=== PATIENT | female | born 1990 | race American Indian/Alaskan Native ===

== ENCOUNTER 2016-07-08 06:58 | Emergency (ER) | payer MEDICAID ==
[2016-07-08] MEDS ORDERED: TYLENOL ONE (07:04)
[2016-07-08] MEDS ORDERED: TYLENOL PO ONE (07:10)
[2016-07-08 07:45] LABS: Basophils % (Auto) 1.2 % (0.0-1.8); Eosinophils % (Auto) 0.8 % (0.0-4.3); Hematocrit 32.7 % (30.3-42.9); Mean Corpuscular HGB Conc 31 % (30-34); Mean Corpuscular Volume 73 fl (79-97); Platelet Count 352 K/mm3 (140-440); Red Blood Count 4.45 M/mm3 (3.65-5.03); Red Cell Distribution Width 19.6 % (13.2-15.2); White Blood Count 5.3 K/mm3 (4.5-11.0)
[2016-07-08 07:48] LABS: Mean Corpuscular Hemoglobin 22 pg (28-32)
[2016-07-08 07:49] LABS: Alanine Aminotransferase 14 units/L (7-56); Albumin 4.6 g/dL (3.9-5); Albumin/Globulin Ratio 1.5 %; Alkaline Phosphatase 59 units/L (35-129); Anion Gap 17 mmol/L; BUN/Creatinine Ratio 18.33; Blood Urea Nitrogen 11 mg/dL (7-17); Calcium 9.5 mg/dL (8.4-10.2); Carbon Dioxide 21 mmol/L (22-30); Chloride 105.3 mmol/L (98-107); Glucose 92 mg/dL (65-100); Lipase 14 units/L (13-60); Potassium 3.9 mmol/L (3.6-5.0); Sodium 139 mmol/L (137-145); Total Protein 7.7 g/dL (6.3-8.2)
[2016-07-08 08:10] LABS: Bilirubin,Urine NEG (Negative); Blood,Urine NEG (Negative); Ketones,Urine 20 mg/dL (Negative); Leukocyte Esterase,Urine NEG (Negative); Mucus,Urine 3+ /HPF; Nitrite,Urine NEG (Negative)
[2016-07-08 09:44] LABS: Bilirubin,Total 0.6 mg/dL (0.1-1.2)
[2016-07-08] MEDS ORDERED: KEPPRA 1,000 MG/NS 0.75% 100ML 1,000 MG/100 ML BAG IV ONE (11:47)
[2016-07-08] MEDS ORDERED: KEPPRA 1,000 MG in NACL 0.9% 100 ML IV SCH (11:55)
[2016-07-08] MEDS ORDERED: LaMICtal PO ONE (13:48)
[2016-07-08] MEDS ORDERED: TORADOL IV ONE (13:48)
[2016-07-08] MEDS ORDERED: NACL 0.9% 1000 ML 1,000 ML IV ONE (13:48)
[2016-07-08] MEDS ORDERED: ZOFRAN IV ONE (13:49)
--- NOTE | 2016-07-08 13:49 | Emergency Department Report ---
ED General Adult HPI - General Chief complaint: Abdominal Pain Stated complaint: STOMACH/BACK PAIN,VOMITING Time Seen by Provider: 07/08/16 13:00 Source: patient, RN notes reviewed Mode of arrival: Ambulatory Limitations: No Limitations - History of Present Illness Initial comments: This is a 26-year-old female. She is previously unknown to me. Has a past medical history of asthma, bipolar, schizophrenia, seizure disorder. Patient takes Keppra, 500 mg twice daily, and Lamictal, 500 mg, once daily. The patient presents to the ER with 2 complaints. Her first complaint is abdominal pain. It is in the right lower quadrant and left lower quadrant. It is achy. It is associated with nausea and vomiting. No irritative or obstructive urinary symptoms. No vaginal discharge. No vaginal pain. The pain does not radiate anywhere. The patient's next complaint is seizure/convulsion. Apparently, the patient was in the ER, and had a seizure. She did not hit her head. The patient reports not taking her anticonvulsant medication this morning. She reports that she is sexually active with a male partner, and does not use condoms. -: Gradual Location: abdomen, pelvis Severity scale (0 -10): 0 Quality: aching Consistency: intermittent Improves with: none Worsens with: none Associated Symptoms: nausea/vomiting. denies: chest pain, cough, diaphoresis, fever/chills - Related Data Previous Rx's Medication Instructions Recorded Last Taken Type Ketorolac [Toradol] 10 mg PO Q6H PRN #20 tablet 07/08/16 Unknown Rx Ondansetron [Zofran Odt] 4 mg PO QID PRN #20 tab.rapdis 07/08/16 Unknown Rx lamoTRIgine [LaMICtal Xr] 500 mg PO QDAY #30 tab.er.24 07/08/16 Unknown Rx levETIRAcetam [Keppra TAB] 500 mg PO BID #60 tablet 07/08/16 Unknown Rx Allergies Allergy/AdvReac Type Severity Reaction Status Date / Time No Known Allergies Allergy Unverified 12/09/15 17:49 ED Review of Systems ROS: Stated complaint: STOMACH/BACK PAIN,VOMITING Other details as noted in HPI Constitutional: denies: fever, malaise Eyes: denies: vision change ENT: denies: epistaxis Respiratory: denies: cough Cardiovascular: denies: chest pain Gastrointestinal: abdominal pain, nausea, vomiting Genitourinary: denies: urgency, dysuria Musculoskeletal: denies: back pain Skin: as per HPI. denies: lesions Neurological: other (seizure) Psychiatric: as per HPI ED Past Medical Hx - Past Medical History Previous Medical History?: Yes Hx Seizures: Yes Hx Psychiatric Treatment: Yes (BIPOLAR, SCHIZOPHRENIC) Hx Asthma: Yes - Surgical History Past Surgical History?: Yes Additional Surgical History: C SECTION X3 - Social History Smoking Status: Current Every Day Smoker Substance Use Type: Alcohol - Medications Home Medications: Home Medications Medication Instructions Recorded Confirmed Last Taken Type Ketorolac [Toradol] 10 mg PO Q6H PRN #20 tablet 07/08/16 Unknown Rx Ondansetron [Zofran Odt] 4 mg PO QID PRN #20 tab.rapdis 07/08/16 Unknown Rx lamoTRIgine [LaMICtal Xr] 500 mg PO QDAY #30 tab.er.24 07/08/16 Unknown Rx levETIRAcetam [Keppra TAB] 500 mg PO BID #60 tablet 07/08/16 Unknown Rx ED Physical Exam - General Limitations: No Limitations General appearance: alert, in no apparent distress - Head Head exam: Present: atraumatic, normocephalic - Eye Eye exam: Present: normal appearance, EOMI. Absent: nystagmus - ENT ENT exam: Present: normal exam, normal orophraynx, mucous membranes moist, normal external ear exam - Neck Neck exam: Present: normal inspection, full ROM. Absent: tenderness, meningismus - Respiratory Respiratory exam: Present: normal lung sounds bilaterally. Absent: respiratory distress, wheezes, rales, rhonchi, stridor, decreased breath sounds - Cardiovascular Cardiovascular Exam: Present: regular rate, normal rhythm, normal heart sounds. Absent: bradycardia, tachycardia, irregular rhythm, systolic murmur, diastolic murmur, rubs, gallop - GI/Abdominal GI/Abdominal exam: Present: soft, tenderness, normal bowel sounds. Absent: distended, guarding, rebound, rigid, pulsatile mass - External exam: Present: normal external exam Speculum exam: Present: normal speculum exam Bi-manual exam: Present: normal bi-manual exam, other (escorted by KOLTON Whiting). Absent: cervical motion tendernes, adnexal tenderness, adnexal mass - Extremities Exam Extremities exam: Present: normal inspection, full ROM, normal capillary refill. Absent: tenderness, pedal edema, joint swelling, calf tenderness - Back Exam Back exam: Present: normal inspection, full ROM. Absent: tenderness, CVA tenderness (R), CVA tenderness (L), muscle spasm, paraspinal tenderness, vertebral tenderness - Neurological Exam Neurological exam: Present: alert, oriented X3, normal gait, other (Extraocular movements intact. Tongue midline. No facial droop. Facial sensation intact to light touch in the V1, V2, V3 distribution bilaterally. 5 and 5 strength in 4 extremities.. Sensation is intact to light touch in 4 extremities.). Absent : motor sensory deficit - Psychiatric Psychiatric exam: Present: normal affect, normal mood - Skin Skin exam: Present: warm, dry, intact, normal color. Absent: rash ED Course Vital Signs 07/08/16 07/08/16 07/08/16 07:10 12:16 12:17 Temperature 98.6 F 98.9 F Pulse Rate 65 98 H Respiratory 18 16 16 Rate Blood Pressure 110/76 102/52 [Right] O2 Sat by Pulse 100 100 100 Oximetry - Reevaluation(s) Reevaluation #1: 07/08/16 15:24 Appendicitis, colitis, gastroenteritis, urinary tract infection, pelvic inflammatory disease, seizure, pseudoseizure, medication noncompliance Assessment and plan: 26-year-old female with 2 complaints. In terms of the patient's abdominal pain, her gynecologic exam is not consistent with pelvic inflammatory disease, she felt improved after symptomatic therapy, and a CT scan of the abdomen and pelvis with IV contrast did not show an acute surgical disease. The patient does admits to consuming cannabis, this is recreational, she is not clinically intoxicated at this time, she has a GCS of 15, with an NIH score of 0. Patient was counseled to discontinue cannabis consumption. In terms of her abdominal pain, it appears that she is suitable to follow up with an outpatient primary care doctor. In terms of the patient's seizure, I did not personally witness it, she was loaded with Keppra prior to my evaluation. Patient is instructed that she should not drive a car for the next 6 months, I will refill her antiepileptic drug medication lists, and she is instructed to follow-up with an outpatient neurologist or primary care physician. She was observed in the ER for a prolonged period of time without significant clinical decompensation. She will be discharged at this time, and return precautions were extensively reviewed. - EJ/Peripheral Line Neck L Time Out Performed: Yes Indications: nurses unable to establis Skin Cleansed in Sterile Fashion: Yes Size: 20 Dressing Placed: Tegaderm Patient Tolerated Procedure: well ED Medical Decision Making - Lab Data Result diagrams: 07/08/16 07:15 07/08/16 07:15 Vital Signs 07/08/16 07/08/16 07/08/16 07:10 12:16 12:17 Temperature 98.6 F 98.9 F Pulse Rate 65 98 H Respiratory 18 16 16 Rate Blood Pressure 110/76 102/52 [Right] O2 Sat by Pulse 100 100 100 Oximetry Lab Results 07/08/16 07/08/16 07/08/16 Range/Units 07:15 07:15 07:15 WBC 5.3 (4.5-11.0) K/mm3 RBC 4.45 (3.65-5.03) M/mm3 Hgb 10.0 L (10.1-14.3) gm/dl Hct 32.7 (30.3-42.9) % MCV 73 L (79-97) fl MCH 22 L (28-32) pg MCHC 31 (30-34) % RDW 19.6 H (13.2-15.2) % Plt Count 352 (140-440) K/mm3 Lymph % (Auto) 32.2 (13.4-35.0) % [place] % (Auto) 9.4 H (0.0-7.3) % Eos % (Auto) 0.8 (0.0-4.3) % Baso % (Auto) 1.2 (0.0-1.8) % Lymph # 1.7 (1.2-5.4) K/mm3 [place] # 0.5 (0.0-0.8) K/mm3 Eos # 0.0 (0.0-0.4) K/mm3 Baso # 0.1 (0.0-0.1) K/mm3 Seg Neutrophils % 56.4 (40.0-70.0) % Seg Neutrophils # 3.0 (1.8-7.7) K/mm3 Sodium 139 (137-145) mmol/L Potassium 3.9 (3.6-5.0) mmol/L Chloride 105.3 (98-107) mmol/L Carbon Dioxide 21 L (22-30) mmol/L Anion Gap 17 mmol/L BUN 11 (7-17) mg/dL Creatinine 0.6 L (0.7-1.2) mg/dL Estimated GFR > 60 ml/min BUN/Creatinine Ratio 18.33 % Glucose 92 (65-100) mg/dL Calcium 9.5 (8.4-10.2) mg/dL Total Bilirubin 0.6 (0.1-1.2) mg/dL AST 17 (5-40) units/L ALT 14 (7-56) units/L Alkaline Phosphatase 59 (35-129) units/L Total Protein 7.7 (6.3-8.2) g/dL Albumin 4.6 (3.9-5) g/dL Albumin/Globulin Ratio 1.5 % Lipase 14 (13-60) units/L HCG, Qual Negative (Negative) Urine Color (Yellow) Urine Turbidity (Clear) Urine pH (5.0-7.0) Ur Specific [place] (1.003-1.030) Urine Protein (Negative) mg/dL Urine Glucose (UA) (Negative) mg/dL Urine Ketones (Negative) mg/dL Urine Blood (Negative) Urine Nitrite (Negative) Urine Bilirubin (Negative) Urine Urobilinogen (<2.0) mg/dL Ur Leukocyte Esterase (Negative) Urine WBC (Auto) (0.0-6.0) /HPF Urine RBC (Auto) (0.0-6.0) /HPF U Epithel Cells (Auto) (0-13.0) /HPF Urine Mucus /HPF 07/08/16 Range/Units 07:34 WBC (4.5-11.0) K/mm3 RBC (3.65-5.03) M/mm3 Hgb (10.1-14.3) gm/dl Hct (30.3-42.9) % MCV (79-97) fl MCH (28-32) pg MCHC (30-34) % RDW (13.2-15.2) % Plt Count (140-440) K/mm3 Lymph % (Auto) (13.4-35.0) % [place] % (Auto) (0.0-7.3) % Eos % (Auto) (0.0-4.3) % Baso % (Auto) (0.0-1.8) % Lymph # (1.2-5.4) K/mm3 [place] # (0.0-0.8) K/mm3 Eos # (0.0-0.4) K/mm3 Baso # (0.0-0.1) K/mm3 Seg Neutrophils % (40.0-70.0) % Seg Neutrophils # (1.8-7.7) K/mm3 Sodium (137-145) mmol/L Potassium (3.6-5.0) mmol/L Chloride (98-107) mmol/L Carbon Dioxide (22-30) mmol/L Anion Gap mmol/L BUN (7-17) mg/dL Creatinine (0.7-1.2) mg/dL Estimated GFR ml/min BUN/Creatinine Ratio % Glucose (65-100) mg/dL Calcium (8.4-10.2) mg/dL Total Bilirubin (0.1-1.2) mg/dL AST (5-40) units/L ALT (7-56) units/L Alkaline Phosphatase (35-129) units/L Total Protein (6.3-8.2) g/dL Albumin (3.9-5) g/dL Albumin/Globulin Ratio % Lipase (13-60) units/L HCG, Qual (Negative) Urine Color Yellow (Yellow) Urine Turbidity Clear (Clear) Urine pH 5.0 (5.0-7.0) Ur Specific [place] 1.029 (1.003-1.030) Urine Protein 30 mg/dl (Negative) mg/dL Urine Glucose (UA) Neg (Negative) mg/dL Urine Ketones 20 (Negative) mg/dL Urine Blood Neg (Negative) Urine Nitrite Neg (Negative) Urine Bilirubin Neg (Negative) Urine Urobilinogen 2.0 (<2.0) mg/dL Ur Leukocyte Esterase Neg (Negative) Urine WBC (Auto) 1.0 (0.0-6.0) /HPF Urine RBC (Auto) 1.0 (0.0-6.0) /HPF U Epithel Cells (Auto) 8.0 (0-13.0) /HPF Urine Mucus 3+ /HPF - Radiology Data Radiology results: report reviewed, image reviewed CT scan of the abdomen and pelvis with IV contrast is negative for acute disease. Critical care attestation.: If time is entered above; I have spent that time in minutes in the direct care of this critically ill patient, excluding procedure time. ED Disposition Clinical Impression: History of seizure, Abdominal pain Disposition: DISCHARGED TO HOME OR SELFCARE Is pt being admited?: No Does the pt Need Aspirin: No Condition: Stable Instructions: Abdominal Pain (ED) Additional Instructions: Take the pain medication, nausea medication as directed. Take the seizure medications as directed. Follow up with a primary care doctor or neurology specialist within the next [address] Segun Barajas is a local primary care doctor. Dr. Palencia is a local neurology specialist. Do not drive her car or operate motor vehicles for the next 6 months until cleared by either primary care or neurology. Cultures were sent today, results will be available in the next 3-5 days. Have a primary care doctor contact the medical records department to obtain culture results. Return to the ER right away with new pain, worsened pain, migration of pain, fevers or chills, intractable nausea or vomiting, inability to tolerate liquid feedings. Referrals: PRIMARY MD BRUNILDA [Primary Care Provider] - 3-5 Days SEGUN BARAJAS MD [Staff Physician] - 3-5 Days MICHELA PALENCIA MD [Staff Physician] - 3-5 Days
[2016-07-08] MEDS ORDERED: NACL ONE (14:17)
--- NOTE | 2016-07-08 15:07 | Cat Scan Report ---
CT ABDOMEN AND PELVIS WITH CONTRAST INDICATION: Abdominal pain, nausea, vomiting. Evaluate for PID versus cyst versus appendicitis. COMPARISON: None similar at this institution. FINDINGS: Abdomen and pelvis CT performed following intravenous administration of 100 cc of Omnipaque 300. LUNG BASES: Normal heart size. No effusions. Slight nonspecific prominence of the distal esophagus. ABDOMEN: Liver, spleen, gallbladder, pancreas, adrenals, nonaneurysmal abdominal aorta, IVC and kidneys appear within normal limits bilaterally without hydronephrosis, ascites or size significant adenopathy. Nonopacified GI tract evaluation limited, though grossly nonobstructive. Normal appendix. PELVIS: Suboptimally distended and assessed nonopacified urinary bladder, though grossly unremarkable. Retroverted uterus and an approximately 1.3 cm possible ruptured follicle/corpus luteum on the left, axial image 133, series 3. Minimal free fluid in the deep right hemipelvis felt physiologic. Rectal air noted. Slight lumbar dextrocurvature apex about L3. CONCLUSION: No definite acute or significant CT abnormality with few incidental findings, felt physiologic within the pelvis, as described. Please correlate. Thank you for the opportunity to participate in this patient's care.
[2016-07-08 15:30] VITALS: BP 103/51
== END 2016-07-08 15:55 | disposition home or self-care (01) ==
LOC: ED 06:58
DX: R10.31 Right lower quadrant pain (principal); R10.32 Left lower quadrant pain; R56.9 Unspecified convulsions; F31.9 Bipolar disorder, unspecified; F20.9 Schizophrenia, unspecified; J45.909 Unspecified asthma, uncomplicated; F17.200 Nicotine dependence, unspecified, uncomplicated
CPT/HCPCS: 36415; 36569; 74177; 80053; 81001; 83690; 84703; 85025; 87210; 87591; 96361; 96365; 96375; 99285; J1885; J1953; J2405; J7030; Q9967

== ENCOUNTER 2016-07-09 07:56 | Emergency (ER) | payer MEDICAID ==
[2016-07-09] MEDS ORDERED: KEPPRA PO ONE ×2 (08:02→08:03)
[2016-07-09] MEDS ORDERED: LaMICtal PO ONE (08:02)
--- NOTE | 2016-07-09 09:49 | Emergency Department Report ---
ED General Adult HPI - General Chief complaint: Seizure Stated complaint: SEIZURE Time Seen by Provider: 07/09/16 08:24 Source: patient, EMS, RN notes reviewed, old records reviewed Mode of arrival: Stretcher Limitations: No Limitations - History of Present Illness Initial comments: This is a 26-year-old female. I have evaluated her in the past. Has a past medical history of seizure disorder. Patient reports taking Keppra, 500 mg twice daily, Lamictal, 500 mg once daily. Patient was seen yesterday for abdominal pain, incidentally noted to have a seizure, was loaded with the aforementioned medications. Patient is brought to the hospital by EMS for recurrent seizure. As per EMS documentation, patient was found supine in the doorway, presenting with a tonic clonic seizure. The patient's roommate indicated that this was her third seizure this morning. The patient reports not taking her anticonvulsant medications yesterday. She has a mild headache. No extremity weakness. No extremity numbness. -: Sudden Severity scale (0 -10): 0 Consistency: now resolved Improves with: medication Worsens with: other (non compliance) Associated Symptoms: headaches - Related Data Previous Rx's Medication Instructions Recorded Last Taken Type Ketorolac [Toradol] 10 mg PO Q6H PRN #20 tablet 07/08/16 Unknown Rx Ondansetron [Zofran Odt] 4 mg PO QID PRN #20 tab.rapdis 07/08/16 Unknown Rx lamoTRIgine [LaMICtal Xr] 500 mg PO QDAY #30 tab.er.24 07/09/16 Unknown Rx levETIRAcetam [Keppra TAB] 500 mg PO BID #60 tablet 07/09/16 Unknown Rx Allergies Allergy/AdvReac Type Severity Reaction Status Date / Time No Known Allergies Allergy Unverified 12/09/15 17:49 ED Review of Systems ROS: Stated complaint: SEIZURE Other details as noted in HPI Constitutional: no symptoms reported, see HPI Eyes: as per HPI ENT: as per HPI Respiratory: see HPI Cardiovascular: as per HPI Gastrointestinal: as per HPI Genitourinary: as per HPI Musculoskeletal: as per HPI Skin: as per HPI Neurological: as per HPI, headache, other (seizure) Psychiatric: as per HPI ED Past Medical Hx - Past Medical History Hx Seizures: Yes Hx Psychiatric Treatment: Yes (BIPOLAR, SCHIZOPHRENIC) Hx Asthma: Yes - Surgical History Additional Surgical History: C SECTION X3 - Social History Smoking Status: Never Smoker - Medications Home Medications: Home Medications Medication Instructions Recorded Confirmed Last Taken Type Ketorolac [Toradol] 10 mg PO Q6H PRN #20 tablet 07/08/16 07/09/16 Unknown Rx Ondansetron [Zofran Odt] 4 mg PO QID PRN #20 tab.rapdis 07/08/16 07/09/16 Unknown Rx lamoTRIgine [LaMICtal Xr] 500 mg PO QDAY #30 tab.er.24 07/09/16 Unknown Rx levETIRAcetam [Keppra TAB] 500 mg PO BID #60 tablet 07/09/16 Unknown Rx ED Physical Exam - General Limitations: No Limitations General appearance: alert, in no apparent distress - Head Head exam: Present: atraumatic, normocephalic - Eye Eye exam: Present: normal appearance, PERRL, EOMI. Absent: nystagmus - ENT ENT exam: Present: normal exam, normal orophraynx, mucous membranes moist, normal external ear exam - Neck Neck exam: Present: normal inspection, full ROM. Absent: tenderness, meningismus - Respiratory Respiratory exam: Present: normal lung sounds bilaterally. Absent: respiratory distress, wheezes, rales, rhonchi, stridor, decreased breath sounds - Cardiovascular Cardiovascular Exam: Present: regular rate, normal rhythm, normal heart sounds. Absent: bradycardia, tachycardia, irregular rhythm, systolic murmur, diastolic murmur, rubs, gallop - GI/Abdominal GI/Abdominal exam: Present: soft, normal bowel sounds. Absent: distended, tenderness, guarding, rebound, rigid, pulsatile mass - Extremities Exam Extremities exam: Present: normal inspection, full ROM, normal capillary refill. Absent: tenderness, pedal edema, joint swelling, calf tenderness - Back Exam Back exam: Present: normal inspection, full ROM. Absent: tenderness, CVA tenderness (R), CVA tenderness (L), muscle spasm, paraspinal tenderness, vertebral tenderness - Neurological Exam Neurological exam: Present: alert, oriented X3, normal gait, other (Extraocular movements intact. Tongue midline. No facial droop. Facial sensation intact to light touch in the V1, V2, V3 distribution bilaterally. 5 and 5 strength in 4 extremities.. Sensation is intact to light touch in 4 extremities.). Absent : motor sensory deficit - Psychiatric Psychiatric exam: Present: normal affect, normal mood - Skin Skin exam: Present: warm, dry, intact, normal color. Absent: rash ED Course Vital Signs 07/09/16 07/09/16 07/09/16 07:59 08:03 08:45 Temperature 97.6 F Pulse Rate 102 H 82 Respiratory 16 16 16 Rate Blood Pressure 150/90 Blood Pressure 150/90 114/70 [Left] O2 Sat by Pulse 98 98 100 Oximetry 07/09/16 10:52 Temperature Pulse Rate 105 H Respiratory 16 Rate Blood Pressure Blood Pressure 96/56 [Left] O2 Sat by Pulse 100 Oximetry - Reevaluation(s) Reevaluation #1: 07/09/16 09:55 Differential diagnosis: Seizure, pseudoseizure, breakthrough seizure secondary to medication noncompliance Assessment and plan: 26-year-old female with possible breakthrough seizure, and context of not taking her epileptic drugs last night. She is afebrile with reassuring vital signs, tachycardia has resolved, has a GCS of 15, with an NIH score of 0. She may have fallen and hit her head, she is not certain. Patient had a complete workup done yesterday, I see no reason to repeat laboratory studies. Upon arrival, she was loaded with Lamictal and Keppra. Case was discussed with covering neurology, Dr. Flores; we both feel that the patient's most likely inciting cause to have recurrent seizure is medication noncompliance. Neurology does not recommend increasing or changing the patient' s medications. The patient reports that she has her prescriptions with her, and once she is discharged, she is going to go to [facility] to have them filled. Reevaluation #2: 07/09/16 10:30 ct head negative Repeat exam unremarkable. Ambulatory with steady gait. Patient will be discharged. 07/09/16 10:32 ED Medical Decision Making - Lab Data Vital Signs 07/09/16 07/09/16 07/09/16 07:59 08:03 08:45 Temperature 97.6 F Pulse Rate 102 H 82 Respiratory 16 16 16 Rate Blood Pressure 150/90 Blood Pressure 150/90 114/70 [Left] O2 Sat by Pulse 98 98 100 Oximetry - Radiology Data Radiology results: report reviewed, image reviewed Noncontrast CT scan of the brain is negative Critical care attestation.: If time is entered above; I have spent that time in minutes in the direct care of this critically ill patient, excluding procedure time. ED Disposition Clinical Impression: History of seizure Disposition: DISCHARGED TO HOME OR SELFCARE Is pt being admited?: No Does the pt Need Aspirin: No Condition: Stable Instructions: Recurrent Seizures Adult (ED) Additional Instructions: Certain to take this seizure medications. Follow up with the neurology specialist, 3 of which I have listed for convenience, within the next week. Do not drive, operate motor vehicles, consume alcohol, consume marijuana. Return to the ER right away with fevers or chills, chest pain or shortness of breath, new, recurrent or different symptoms. Prescriptions: lamoTRIgine [LaMICtal Xr] 500 mg PO QDAY #30 tab.er.24 levETIRAcetam [Keppra TAB] 500 mg PO BID #60 tablet Referrals: PRIMARY CAREMD [Primary Care Provider] - 3-5 Days BLAIRE SPENCER MD [Staff Physician] - 3-5 Days YANICK GUZMAN MD [Staff Physician] - 3-5 Days MICHELA KAY MD [Staff Physician] - 3-5 Days
--- NOTE | 2016-07-09 10:13 | Cat Scan Report ---
CT HEAD WITHOUT CONTRAST: HISTORY: Seizure, head trauma. Serial contiguous axial images were obtained through the cranium. Intravenous contrast material was not administered. The ventricles are normal in size and appearance. There is no mass effect or midline shift. No areas of abnormally increased or decreased attenuation are seen. No mass lesion is seen. The mastoid air cells and visualized portions of the sinuses are normal. IMPRESSION: Cranial CT scan within normal limits.
[2016-07-09 10:54] VITALS: BP 96/56
== END 2016-07-09 10:55 | disposition home or self-care (01) ==
LOC: ED 07:56
DX: R56.9 Unspecified convulsions (principal); F31.9 Bipolar disorder, unspecified; F20.9 Schizophrenia, unspecified
CPT/HCPCS: 70450; 99284

== ENCOUNTER 2019-05-25 17:03 | Emergency (ER) | payer MEDICAID, OTHER ==
[2019-05-25] MEDS ORDERED: levETIRAcetam 1000 MG/NS 0.75% 1,000 MG/100 ML BAG IV ONE (17:18)
--- NOTE | 2019-05-25 19:51 | Emergency Department Report ---
ED Seizure HPI - General Chief Complaint: Seizure Stated Complaint: SEIZURE Time Seen by Provider: 05/25/19 17:17 Source: patient Mode of arrival: Ambulatory Limitations: No Limitations - History of Present Illness MD Complaint: seizure -: This afternoon Description of Episode: loss of consciousness, tonic-clonic movement, post-event confusion Witnessed:: Yes Trauma: No Seizure History: known seizure disorder Possible Precipitating Event: none Associated Symptoms: denies other symptoms Treatments Prior to Arrival: benzodiazepines - Related Data Previous Rx's Medication Instructions Recorded Last Taken Type Ketorolac [Toradol] 10 mg PO Q6H PRN #20 tablet 07/08/16 Unknown Rx Ondansetron [Zofran Odt] 4 mg PO QID PRN #20 tab.rapdis 07/08/16 Unknown Rx lamoTRIgine [LaMICtal Xr] 500 mg PO QDAY #30 tab.er.24 07/09/16 Unknown Rx levETIRAcetam [Keppra TAB] 500 mg PO BID #60 tablet 07/09/16 Unknown Rx Allergies Allergy/AdvReac Type Severity Reaction Status Date / Time No Known Allergies Allergy Unverified 12/09/15 17:49 ED Review of Systems ROS: Stated complaint: SEIZURE Other details as noted in HPI Comment: All other systems reviewed and negative ED Past Medical Hx - Past Medical History Previous Medical History?: Yes Hx Seizures: Yes Hx Psychiatric Treatment: Yes (BIPOLAR, SCHIZOPHRENIC) Hx Asthma: Yes - Surgical History Past Surgical History?: Yes Additional Surgical History: C SECTION X3 - Social History Smoking Status: Never Smoker Substance Use Type: None - Medications Home Medications: Home Medications Medication Instructions Recorded Confirmed Last Taken Type Ketorolac [Toradol] 10 mg PO Q6H PRN #20 tablet 07/08/16 07/09/16 Unknown Rx Ondansetron [Zofran Odt] 4 mg PO QID PRN #20 tab.rapdis 07/08/16 07/09/16 Unknown Rx lamoTRIgine [LaMICtal Xr] 500 mg PO QDAY #30 tab.er.24 07/09/16 Unknown Rx levETIRAcetam [Keppra TAB] 500 mg PO BID #60 tablet 07/09/16 Unknown Rx ED Physical Exam - General Limitations: No Limitations General appearance: alert, in no apparent distress - Head Head exam: Present: atraumatic, normocephalic - Eye Eye exam: Present: normal appearance - ENT ENT exam: Present: mucous membranes moist - Neck Neck exam: Present: normal inspection - Respiratory Respiratory exam: Present: normal lung sounds bilaterally. Absent: respiratory distress, wheezes, rales, rhonchi - Cardiovascular Cardiovascular Exam: Present: regular rate, normal rhythm. Absent: systolic murmur, diastolic murmur, rubs, gallop - GI/Abdominal GI/Abdominal exam: Present: soft, normal bowel sounds - Extremities Exam Extremities exam: Present: normal inspection - Back Exam Back exam: Present: normal inspection - Neurological Exam Neurological exam: Present: alert, oriented X3 - Psychiatric Psychiatric exam: Present: normal affect, normal mood - Skin Skin exam: Present: warm, dry, intact, normal color. Absent: rash ED Course Vital Signs 05/25/19 05/25/19 05/25/19 17:25 17:30 18:00 Blood Pressure 123/61 122/74 O2 Sat by Pulse 100 100 99 Oximetry 05/25/19 18:30 Blood Pressure 115/58 O2 Sat by Pulse 99 Oximetry ED Medical Decision Making - Medical Decision Making Patient is a 29-year-old F [place] female presenting status post 2 seizures. Second was witnessed by EMS. Patient was given nasal benzodiazepines. Patient is alert and oriented on arrival. Patient does take Keppra and may have had some noncompliant issues. Patient was loaded with a gram of Keppra and will be discharged home. Critical care attestation.: If time is entered above; I have spent that time in minutes in the direct care of this critically ill patient, excluding procedure time. ED Disposition Clinical Impression: Breakthrough seizure Disposition: DC-01 TO HOME OR SELFCARE Is pt being admited?: No Does the pt Need Aspirin: No Condition: Stable Instructions: Recurrent Seizures Adult (ED) Additional Instructions: Continue with your Keppra prescription Referrals: PRIMARY CARE, [Primary Care Provider] - 3-5 Days Time of Disposition: 19:51
[2019-05-25 20:30] VITALS: BP 90/52
== END 2019-05-25 20:30 | disposition home or self-care (01) ==
LOC: ED 17:03
DX: R56.9 Unspecified convulsions (principal); F20.89 Other schizophrenia; F31.89 Other bipolar disorder; J45.909 Unspecified asthma, uncomplicated; Z98.890 Other specified postprocedural states; Z79.899 Other long term (current) drug therapy
CPT/HCPCS: 96374; 99283; J1953

== ENCOUNTER 2020-10-11 19:16 | Emergency (ER) | payer MEDICARE ==
[2020-10-11] MEDS ORDERED: levETIRAcetam 1000 MG/NS 0.75% 1,000 MG/100 ML BAG IV ONE (19:32)
--- NOTE | 2020-10-11 19:32 | Emergency Department Report ---
ED Seizure HPI - General Chief Complaint: Seizure Stated Complaint: SEIZURES Time Seen by Provider: 10/11/20 19:18 Source: patient, EMS Mode of arrival: Stretcher Limitations: No Limitations - History of Present Illness Initial Comments: Patient is a 30-year-old female that presents emergency room for seizure activity. Patient had a witnessed seizure at home. Patient's family called EMS and the patient had another witnessed seizure with EMS requiring Ativan to stop the seizure. Patient had some postevent confusion. Patient at this time is awake alert and oriented x3. Patient states that she has a known seizure history. Patient states that she ran out of her medications. Patient denies pain. Patient denies chest pain. Patient denies shortness of breath. Patient states her last menstrual period was 3 days ago. Patient denies possibility of . Patient denies head injury. Patient denies headache. Patient states she takes Keppra daily. Patient denies recent travel. Patient denies recent international travel. Patient denies exposure to the novel coronavirus. Patient denies sick contacts. Patient denies fever and chills. Patient denies cough. Patient denies diarrhea. Patient denies coming in contact with anybody with symptoms of the novel coronavirus. MD Complaint: seizure -: Sudden Description of Episode: loss of consciousness, tonic-clonic movement, post-event confusion -: second(s) Witnessed:: Yes Trauma: No Seizure History: known seizure disorder, history of withdrawal se, history of non-compliance Place: home Possible Precipitating Event: medication Associated Symptoms: confusion, malaise. denies: chest pain, cough, diaphoresis, fever/chills, loss of appetite, rash, shortness of breath, syncope, weakness, tongue injury, shoulder dislocation Treatments Prior to Arrival: benzodiazepines - Related Data Previous Rx's Medication Instructions Recorded Last Taken Type Ketorolac [Toradol] 10 mg PO Q6H PRN #20 tablet 07/08/16 Unknown Rx Ondansetron [Zofran Odt] 4 mg PO QID PRN #20 tab.rapdis 07/08/16 Unknown Rx lamoTRIgine [LaMICtal Xr] 500 mg PO QDAY #30 tab.er.24 07/09/16 Unknown Rx levETIRAcetam [Keppra TAB] 500 mg PO BID #60 tablet 10/11/20 Unknown Rx Allergies Allergy/AdvReac Type Severity Reaction Status Date / Time morphine Allergy Unknown Verified 10/11/20 19:26 mushroom Allergy Unknown Verified 10/11/20 19:26 ED Review of Systems ROS: Stated complaint: SEIZURES Other details as noted in HPI Constitutional: denies: chills, fever Eyes: denies: eye pain, eye discharge, vision change ENT: denies: ear pain, throat pain Respiratory: denies: cough, shortness of breath, wheezing Cardiovascular: denies: chest pain, palpitations Endocrine: no symptoms reported Gastrointestinal: denies: abdominal pain, nausea, diarrhea Genitourinary: denies: urgency, dysuria, discharge Musculoskeletal: denies: back pain, joint swelling, arthralgia Skin: denies: rash, lesions Neurological: as per HPI. denies: headache, weakness, paresthesias Psychiatric: denies: anxiety, depression Hematological/Lymphatic: denies: easy bleeding, easy bruising ED Past Medical Hx - Past Medical History Previous Medical History?: Yes Hx Seizures: Yes Hx Psychiatric Treatment: Yes (BIPOLAR, SCHIZOPHRENIC) Hx Asthma: Yes - Surgical History Past Surgical History?: Yes Additional Surgical History: C SECTION X3 - Family History Family history: no significant - Social History Smoking Status: Never Smoker Substance Use Type: None - Medications Home Medications: Home Medications Medication Instructions Recorded Confirmed Last Taken Type Ketorolac [Toradol] 10 mg PO Q6H PRN #20 tablet 07/08/16 07/09/16 Unknown Rx Ondansetron [Zofran Odt] 4 mg PO QID PRN #20 tab.rapdis 07/08/16 07/09/16 Unknown Rx lamoTRIgine [LaMICtal Xr] 500 mg PO QDAY #30 tab.er.24 07/09/16 Unknown Rx levETIRAcetam [Keppra TAB] 500 mg PO BID #60 tablet 10/11/20 Unknown Rx ED Physical Exam - General Limitations: No Limitations General appearance: alert, in no apparent distress - Head Head exam: Present: atraumatic, normocephalic - Eye Eye exam: Present: normal appearance - ENT ENT exam: Present: mucous membranes moist - Neck Neck exam: Present: normal inspection - Respiratory Respiratory exam: Present: normal lung sounds bilaterally. Absent: respiratory distress, wheezes, rales - Cardiovascular Cardiovascular Exam: Present: regular rate, normal rhythm. Absent: systolic murmur, diastolic murmur, rubs, gallop - GI/Abdominal GI/Abdominal exam: Present: soft, normal bowel sounds. Absent: distended, tenderness, guarding - Extremities Exam Extremities exam: Present: normal inspection - Back Exam Back exam: Present: normal inspection - Neurological Exam Neurological exam: Present: alert, oriented X3 - Psychiatric Psychiatric exam: Present: normal affect, normal mood - Skin Skin exam: Present: warm, dry, intact, normal color. Absent: rash ED Course Vital Signs 10/11/20 10/11/20 19:41 19:43 Temperature 98.3 F Pulse Rate 74 84 Respiratory 26 H 25 H Rate Blood Pressure 110/64 Blood Pressure 120/75 [Left] O2 Sat by Pulse 100 98 Oximetry - Reevaluation(s) Reevaluation #1: Nurse unable to obtain IV and I placed a right EJ. See procedure note. 10/11/20 19:32 Reevaluation #2: Patient had another seizure. Patient given 1 mg of Ativan. Patient on vehicle monitor technician. Patient is postictal at this time. 10/11/20 19:48 Reevaluation #3: Patient states she is feeling better. Patient has not had another seizure. Patient given IV Keppra. 10/11/20 21:01 Reevaluation #4: Patient answering questions properly. Patient resting in bed but easily arousable. Patient is oriented x4. I discussed all results and clinical findings with patient. I discussed plan of care with patient. Patient agrees with plan of care. Patient is stable for discharge. Patient will be discharged home. Patient given discharge instructions. Patient voiced understanding of discharge instructions. 10/11/20 21:51 - EJ/Peripheral Line Neck R Time Out Performed: Yes Indications: nurses unable to establis Skin Cleansed in Sterile Fashion: Yes Size: 18 Dressing Placed: Tegaderm, tape Patient Tolerated Procedure: well, no complications ED Medical Decision Making - Lab Data Result diagrams: 10/11/20 19:36 10/11/20 19:36 - Medical Decision Making Patient is a 30-year-old female presents emergency room with complaints of seizure activity. Patient has a known seizure history but is noncompliant with her medications. Patient had a witnessed seizure at home and the family called EMS. EMS witnessed another 1 gave the patient Ativan. Patient had another 1 in the ER and the patient was given a low-dose of Ativan. Patient was then given IV Keppra. Patient will be discharged home with a refill of her seizure medication. Patient had labs done which were essentially unremarkable. Patient does not require any further emergency medical services. Patient not require inpatient service. Patient discharged home. - Differential Diagnosis Seizure, noncompliance, Critical care attestation.: If time is entered above; I have spent that time in minutes in the direct care of this critically ill patient, excluding procedure time. ED Disposition Clinical Impression: Seizure, Noncompliance Disposition: DC-01 TO HOME OR SELFCARE Is pt being admited?: No Does the pt Need Aspirin: No Condition: Stable Instructions: Epilepsy, [id number], Seizure, Adult, [id number] Additional Instructions: Patient to follow-up with primary care in 2 to 3 days. Patient to follow-up with neurologist in 2 to 3 days. Patient to avoid driving and high places. Pa kun did not drive until cleared by neurologist. Patient to rest. Patient to increase water. Patient to avoid strenuous exercise or heavy lifting until cleared by neurology and primary care.. Patient to take Tylenol or ibuprofen as needed for pain. Patient to take meds as directed. Patient to return to the ER if condition worsens, changes or new symptoms arise. Prescriptions: levETIRAcetam [Keppra TAB] 500 mg PO BID #60 tablet Referrals: ARPIT GLASER MD [Staff Physician] - 2-3 Days BLAIRE SPENCER MD [Staff Physician] - 2-3 Days Time of Disposition: 21:54
[2020-10-11] MEDS ORDERED: LORazepam 2 MG/ML VIAL ONE (19:37)
[2020-10-11 19:43] LABS: Hematocrit 33.5 % (30.3-42.9); Hemoglobin 10.7 gm/dl (10.1-14.3); Mean Corpuscular HGB Conc 32 % (30-34); Mean Corpuscular Volume 82 fl (79-97); Platelet Count 335 K/mm3 (140-440); Red Blood Count 4.08 M/mm3 (3.65-5.03); Red Cell Distribution Width 19.2 % (13.2-15.2)
[2020-10-11 19:46] VITALS: BP 110/64
[2020-10-11] MEDS ORDERED: LORazepam 2 MG/ML VIAL IV ONE (19:47)
[2020-10-11 20:03] LABS: Blood Urea Nitrogen 10 mg/dL (7-17); Calcium 9.5 mg/dL (8.4-10.2); Hemolysis Index 49
[2020-10-11 20:25] LABS: BUN/Creatinine Ratio 14
== END 2020-10-11 23:13 | disposition home or self-care (01) ==
LOC: ED 19:16
DX: R56.9 Unspecified convulsions (principal); Z91.19 Patient's noncompliance with other medical treatment and regimen; F31.9 Bipolar disorder, unspecified; F20.9 Schizophrenia, unspecified; J45.909 Unspecified asthma, uncomplicated; Z98.890 Other specified postprocedural states; Z79.899 Other long term (current) drug therapy; Z88.8 Allergy status to other drugs, medicaments and biological substances
CPT/HCPCS: 36415; 36556; 80048; 85027; 96365; 96375; 99283; J1953; J2060

== ENCOUNTER 2021-02-07 17:35 | Emergency (ER) | payer MEDICARE ==
[2021-02-07] MEDS ORDERED: levETIRAcetam 1000 MG/NS 0.75% 1,000 MG/100 ML BAG IV ONE (18:16)
--- NOTE | 2021-02-07 18:25 | Emergency Department Report ---
HPI - General Time Seen by Provider: 02/07/21 18:14 - HPI HPI: Room 21 Patient is a 30-year-old female present with chief complaint of seizure. The patient has a history of seizures but reportedly has been off of her Keppra for approximately 6 months. Patient had a witnessed seizure at work but refused medical care. The patient was at work when she had a second seizure and EMS was called. The patient was awake sitting with EMS when she had a third seizure prompting EMS to administer Versed 3 mg IV. The patient is now awake and complains of slight dizziness. ED Past Medical Hx - Past Medical History Hx Seizures: Yes Hx Psychiatric Treatment: Yes (BIPOLAR, SCHIZOPHRENIC) Hx Asthma: Yes - Surgical History Past Surgical History?: No Additional Surgical History: C SECTION X3 - Family History Family history: no significant - Social History Smoking Status: Never Smoker Substance Use Type: None - Medications Home Medications: Home Medications Medication Instructions Recorded Confirmed Last Taken Type Ketorolac [Toradol] 10 mg PO Q6H PRN #20 tablet 07/08/16 07/09/16 Unknown Rx Ondansetron [Zofran Odt] 4 mg PO QID PRN #20 tab.rapdis 07/08/16 07/09/16 Unknown Rx lamoTRIgine [LaMICtal Xr] 500 mg PO QDAY #30 tab.er.24 07/09/16 Unknown Rx levETIRAcetam [Keppra TAB] 500 mg PO BID #60 tablet 02/07/21 Unknown Rx ED Review of Systems ROS: Stated complaint: SZ Other details as noted in HPI Constitutional: no symptoms reported Eyes: denies: eye pain ENT: denies: throat pain Respiratory: no symptoms reported Cardiovascular: denies: chest pain Endocrine: no symptoms reported Gastrointestinal: denies: abdominal pain Genitourinary: denies: dysuria Musculoskeletal: denies: back pain Neurological: other (Dizziness) Physical Exam - Physical Exam Physical Exam: GENERAL: The patient is well-developed well-nourished female lying on stretcher asleep but awakens to tactile stimuli. [] HEENT: Normocephalic. Atraumatic. Extraocular motions are intact. Patient has moist mucous membranes. NECK: Supple. Trachea midline CHEST/LUNGS: Clear to auscultation. There is no respiratory distress noted. HEART/CARDIOVASCULAR: Regular. There is no tachycardia. There is no gallop rub or murmur. ABDOMEN: Abdomen is soft, nontender. Patient has normal bowel sounds. There is no abdominal distention. SKIN: There is no rash. There is no edema. There is no diaphoresis. NEURO: The patient is asleep but becomes alert, and oriented when awakened. The patient is cooperative. The patient has no focal neurologic deficits. The patient has normal speech MUSCULOSKELETAL: There is no evidence of acute injury. ED Course - Reevaluation(s) Reevaluation #1: 02/07/21 22:50 Heart rate 98, patient resting comfortably ED Medical Decision Making - Lab Data Result diagrams: 02/07/21 18:37 02/07/21 18:37 - Differential Diagnosis Seizure disorder Critical care attestation.: If time is entered above; I have spent that time in minutes in the direct care of this critically ill patient, excluding procedure time. ED Disposition Clinical Impression: Seizure Disposition: 01 HOME / SELF CARE / HOMELESS Is pt being admited?: No Does the pt Need Aspirin: No Condition: Stable Instructions: Epilepsy, [id number] Additional Instructions: Return to the emergency department should you develop worsening symptoms, inability to tolerate food or liquids, high fever or any other concerns Prescriptions: levETIRAcetam [Keppra TAB] 500 mg PO BID #60 tablet Referrals: MAURICIO VALADEZ [Other] - 3-5 Days Time of Disposition: 22:51
[2021-02-07 19:09] LABS: Basophils % (Auto) 0.4 % (0.0-1.8); Eosinophils # (Auto) 0.1 K/mm3 (0.0-0.4); Eosinophils % (Auto) 0.7 % (0.0-4.3); Lymphocytes % (Auto) 14.1 % (13.4-35.0); Mean Corpuscular HGB Conc 31 % (30-34); Mean Corpuscular Volume 84 fl (79-97); Monocytes # (Auto) 0.4 K/mm3 (0.0-0.8); Monocytes % (Auto) 4.9 % (0.0-7.3); Platelet Count 360 K/mm3 (140-440); Red Blood Count 4.45 M/mm3 (3.65-5.03); Red Cell Distribution Width 19.1 % (13.2-15.2)
[2021-02-07 19:20] LABS: Hemoglobin 11.4 gm/dl (10.1-14.3)
[2021-02-07 19:21] LABS: Hematocrit 37.2 % (30.3-42.9)
[2021-02-07 19:36] LABS: Blood Urea Nitrogen 7 mg/dL (7-17); Calcium 9.9 mg/dL (8.4-10.2); Hemolysis Index 18
[2021-02-07 19:37] LABS: BUN/Creatinine Ratio 12
[2021-02-07] MEDS ORDERED: ONDANSETRON 4 MG/2 ML INJ ONE (19:39)
[2021-02-07] MEDS ORDERED: LORazepam 2 MG/ML VIAL ONE (19:45)
[2021-02-07] MEDS ORDERED: ONDANSETRON 4 MG/2 ML INJ IM ONE (20:00)
[2021-02-07] MEDS ORDERED: SODIUM CHLORIDE 0.9% 1000 ML 1,000 ML ONE (20:29)
[2021-02-07] MEDS ORDERED: SODIUM CHLORIDE 0.9% 1000 ML 1,000 ML IV ONE (21:07)
[2021-02-07] MEDS ORDERED: LORazepam 2 MG/ML VIAL IM PRN (22:06)
[2021-02-07 23:11] VITALS: BP 112/71
== END 2021-02-07 23:35 | disposition home or self-care (01) ==
LOC: ED 17:35
DX: R56.9 Unspecified convulsions (principal); F31.9 Bipolar disorder, unspecified; F20.9 Schizophrenia, unspecified; J45.909 Unspecified asthma, uncomplicated; Z98.890 Other specified postprocedural states; Z88.5 Allergy status to narcotic agent; Z91.018 Allergy to other foods
CPT/HCPCS: 36415; 80048; 83735; 84703; 85025; 96361; 96372; 96374; 99283; J1953; J2060; J2405; J7030